=== PATIENT | male | born 1995 | race African-American/Black ===

== ENCOUNTER 2018-01-11 15:29 | Emergency (ER) | payer SELFPAY ==
[~2018-01-11] VITALS: Ht 180.3 cm; Wt 72.7 kg
[2018-01-11 18:38] LABS: CLARITY URINE CLEAR (CLEAR); COLOR URINE YELLOW (YELLOW); KETONES URINE NEGATIVE (NEGATIVE); LEUKOCYTE ESTERASE URINE NEGATIVE (NEGATIVE); NITRITE URINE NEGATIVE (NEGATIVE); OCCULT BLOOD URINE NEGATIVE (NEGATIVE); PH URINE 6.5 (4.5-8.0); PROTEIN URINE NEGATIVE (NEGATIVE); SPECIFIC GRAVITY URINE 1.031 (1.005-1.030)
[2018-01-11] MEDS ORDERED: AZITHROMYCIN 500 MG TABLET PO ONE (19:45)
[2018-01-11] MEDS ORDERED: CEFTRIAXONE SODIUM 250 MG/VIAL IM ONE (19:45)
[2018-01-11 20:34] VITALS: BP 135/80
== END 2018-01-11 21:11 | disposition home or self-care (01) ==
LOC: ER 17:12
DX: N48.1 Balanitis (principal); Z20.2 Contact with and (suspected) exposure to infections with a predominantly sexual mode of transmission; F12.10 Cannabis abuse, uncomplicated
CPT/HCPCS: 81003; 96372; 99283; J0696

== ENCOUNTER 2023-11-08 03:52 | Emergency (ER) | payer SELFPAY ==
[~2023-11-08] VITALS: Ht 185.4 cm; Wt 80.0 kg
[2023-11-08 03:54] VITALS: BP 140/90; PULSE 80; RESP 15; TEMP 98.4; O2SAT 97
== END 2023-11-08 09:56 | disposition home or self-care (01) ==
LOC: ER 03:52
DX: F10.129 Alcohol abuse with intoxication, unspecified (principal); J45.909 Unspecified asthma, uncomplicated; F12.90 Cannabis use, unspecified, uncomplicated; R51.9 Headache, unspecified; Y90.9 Presence of alcohol in blood, level not specified
CPT/HCPCS: 99284

== ENCOUNTER 2025-03-28 03:58 | Emergency (ER) | payer SELFPAY ==
[~2025-03-28] VITALS: Ht 185.4 cm; Wt 70.0 kg
[2025-03-28 04:43] VITALS: BP 134/67; PULSE 74; RESP 18; TEMP 36.6; O2SAT 98
== END 2025-03-28 04:54 ==
LOC: ER 03:58
DX: S41.131D Puncture wound without foreign body of right upper arm, subsequent encounter (principal); F12.90 Cannabis use, unspecified, uncomplicated; X58.XXXD Exposure to other specified factors, subsequent encounter
CPT/HCPCS: 99283